=== PATIENT | female | born 1955 | race Caucasian/White ===

== ENCOUNTER → 2018-05-14 | Outpatient (CLI) | payer BC ==
[2018-05-14 17:32] LABS: HCT 44.1 % (34.0-46.0); HGB 14.6 gm/dL (11.4-16.0); MCH 31.2 pg (25.0-35.0); MCHC 33.1 g/dL (31.0-37.0); MCV 94.4 fL (80.0-100.0); Mean Platelet Volume 7.5; Platelet Count 199 k/uL (150-450); RBC 4.67 m/uL (3.80-5.40); RDW 13.3 % (11.5-15.5); WBC 5.3 k/uL (3.8-10.6)
[2018-05-15 00:58] LABS: Thyroid Peroxidase Antibodies 34.7 U/mL (0.0-60.0); Vitamin D 25 Hydroxy 19.7 ng/mL (30.0-100.0)
[2018-05-15 01:40] LABS: Albumin 4.3 g/dL (3.80-4.90); Albumin/Globulin Ratio 2.15 (1.60-3.17); Anion Gap 10.7 mmol/L (4.00-12.00); Calcium 9.7 mg/dL (8.7-10.3); Carbon Dioxide 26.3 mmol/L (21.6-31.8); Potassium 4.4 mmol/L (3.5-5.5); Total Bilirubin 0.3 mg/dL (0.2-1.2); Total Protein 6.3 g/dL (6.2-8.2)
[2018-05-15 01:58] LABS: T4, Free (Free Thyroxine) 0.8 ng/dL (0.80-1.80)
== END | disposition home or self-care (01) ==
LOC: LABWHC1 16:13
PROVIDERS: ATTEND Obstetrics & Gynecology
DX: E55.9 Vitamin D deficiency, unspecified (principal); R53.83 Other fatigue; R68.82 Decreased libido; Z78.0 Asymptomatic menopausal state
CPT/HCPCS: 36415; 80053; 82306; 82607; 82670; 83001; 84403; 84439; 84443; 84481; 85027; 86376

== ENCOUNTER → 2018-07-01 | Outpatient (CLI) | payer BC | END | disposition home or self-care (01) | LOC: LABWHC1 17:31 | PROVIDERS: ATTEND Obstetrics & Gynecology | DX: E03.9 Hypothyroidism, unspecified (principal); E55.9 Vitamin D deficiency, unspecified; N95.1 Menopausal and female climacteric states; E34.50 Androgen insensitivity syndrome, unspecified | CPT/HCPCS: 36415; 82670; 83001; 84403; 84481 ==

== ENCOUNTER → 2019-06-11 | Outpatient (CLI) | payer BC ==
[2019-06-11 17:26] LABS: C Reactive Protein 0.4 mg/dL (0.0-0.8)
[2019-06-11 17:28] LABS: Thyroid Peroxidase Antibodies <28.0 U/mL (0.0-60.0)
[2019-06-12 08:11] LABS: HLA B27 NEGATIVE
[2019-06-12 09:17] LABS: Angiotensin-1 Converting Enz. 36 U/L (8-52)
[2019-06-12 13:56] LABS: C-ANCA <1:20 Titer (<1:20)
== END | disposition home or self-care (01) ==
LOC: LABWHC1 08:13
PROVIDERS: ATTEND Neurological Surgery
DX: E03.9 Hypothyroidism, unspecified (principal); E06.3 Autoimmune thyroiditis; H20.9 Unspecified iridocyclitis
CPT/HCPCS: 36415; 82164; 84439; 84443; 85549; 85652; 86038; 86140; 86255; 86376; 86431; 86618; 86780; 86812

== ENCOUNTER → 2020-07-12 | Outpatient (CLI) | payer BC ==
--- NOTE | 2020-07-13 07:51 | US ---
EXAMINATION TYPE: US venous doppler duplex LE LT DATE OF EXAM: 07/12/2020 4:39 PM COMPARISON: NONE CLINICAL HISTORY: Left leg pain and swelling. SIDE PERFORMED: Left TECHNIQUE: The lower extremity deep venous system is examined utilizing real time linear array sonog jermaine with graded compression, doppler sonography and color-flow sonography. VESSELS IMAGED: Common Femoral Vein Deep Femoral Vein Greater Saphenous Vein * Femoral Vein Popliteal Vein Small Saphenous Vein * Proximal Calf Veins (* superficial vessels) Left Leg: Negative for DVT GSV in its entirety and PTV's also scanned per order. IMPRESSION: No evidence for DVT.
== END | disposition home or self-care (01) ==
LOC: RADUSWWP 15:57
PROVIDERS: ATTEND Orthopaedic Surgery
DX: M79.605 Pain in left leg (principal); R22.42 Localized swelling, mass and lump, left lower limb

== ENCOUNTER 2020-08-28 15:51 | Emergency (ER) | payer BC ==
[2020-08-28 15:58] VITALS: BP 129/68; PULSE 63; RESP 16; TEMP 97.6
[2020-08-28] MEDS ORDERED: LIDOCAINE 1% INJ 10MG/ML (20 ML MDV) SQ ONE (16:17)
[2020-08-28] MEDS ORDERED: ACETAMINOPHEN TAB 325 MG TAB PO STA (16:17)
--- NOTE | 2020-08-28 16:17 | ED ---
Wound/Laceration HPI - General Chief Complaint: Wound/Laceration Stated Complaint: L hand injury Time Seen by Provider: 08/28/20 16:00 Source: patient, RN notes reviewed, old records reviewed Mode of arrival: ambulatory Limitations: no limitations - History of Present Illness Initial Comments: 64-year-old white female, well-appearing and alert and oriented 4, presents to the emergency room after slamming her left ring finger in a house door at around noon today. Patient states that she went to [facility] and they diagnosed her with a displaced fracture of the distal phalanx and sent her to the emergency room for laceration repair. Patient denies any other injuries. States her tetanus is up-to-date and given within the last 10 years. Patient denies any movement limitations she says that it has been oozing blood since the injury occurred. Patient denies smoking history. His medical history breast cancer, hypothyroid, bilateral mastectomies and oophorectomy, peripheral neuropathy and fingers and toes from chemotherapy.. Patient states that the pain is 4 out of 10 but did take Motrin prior to arrival. -: hour(s) (4) Location: other Place: home Patient Tetanus UTD: Yes Context: accidental (Slammed in a house door) Associated Symptoms: none Treatments Prior to Arrival: other (X-ray at [facility]) - Related Data Home Medications Medication Instructions Recorded Confirmed Cholecalciferol [Vitamin D3 (25 25 mcg PO DAILY 08/28/20 08/28/20 Mcg = 1000 Iu)] Gabapentin [Neurontin] 300 mg PO DAILY 08/28/20 08/28/20 Gabapentin [Neurontin] 600 mg PO HS 08/28/20 08/28/20 [place]-3 Fatty Acids/Fish Oil [Fish 1 cap PO DAILY 08/28/20 08/28/20 Oil 1,000 mg Softgel] Thyroid,Pork [Personnel Generalist Manager Thyroid] 60 mg PO DAILY 08/28/20 08/28/20 buPROPion HCL [Wellbutrin XL] 300 mg PO DAILY@1200 08/28/20 08/28/20 Previous Rx's Medication Instructions Recorded Cephalexin [Keflex] 500 mg PO Q6HR #40 cap 08/28/20 Allergies Allergy/AdvReac Type Severity Reaction Status Date / Time codeine Allergy Unknown Uncoded 08/28/20 17:07 Review of Systems ROS Statement: Those systems with pertinent positive or pertinent negative responses have been documented in the HPI. ROS Other: All systems not noted in ROS Statement are negative. Past Medical History Past Medical History: Cancer, Thyroid Disorder Additional Past Medical History / Comment(s): chemo induced neuropathy, breast cancer History of Any Multi-Drug Resistant Organisms: None Reported Past Surgical History: Orthopedic Surgery, Tonsillectomy Additional Past Surgical History / Comment(s): double mastectomy., oophorectomy Past Psychological History: Depression Smoking Status: Never smoker Past Alcohol Use History: None Reported Past Drug Use History: None Reported General Exam Limitations: no limitations General appearance: alert, in no apparent distress Head exam: Present: atraumatic, normocephalic, normal inspection Eye exam: Present: normal appearance, PERRL, EOMI. Absent: scleral icterus, conjunctival injection, periorbital swelling Pupils: Present: normal accommodation ENT exam: Present: normal exam, normal oropharynx, mucous membranes moist Neck exam: Present: normal inspection, full ROM. Absent: tenderness, meningismus, lymphadenopathy Respiratory exam: Present: normal lung sounds bilaterally. Absent: respiratory distress, wheezes, rales, rhonchi, stridor, chest wall tenderness, accessory muscle use, decreased breath sounds Cardiovascular Exam: Present: regular rate, normal rhythm, normal heart sounds. Absent: systolic murmur, diastolic murmur, rubs, gallop, clicks GI/Abdominal exam: Present: soft, normal bowel sounds. Absent: distended, tenderness, guarding, rebound, rigid Extremities exam: Present: normal inspection, full ROM, normal capillary refill. Absent: tenderness, pedal edema, joint swelling, calf tenderness Left Hand Wrist exam: Present: tenderness, laceration (2 cm laceration to the palmar aspect of The distal phalanx of the ring finger ), subungual hematoma (Minor subungual hematoma the nail base of ring finger). Absent: amputation, nail avulsion Neuro motor exam: Present: wrist extension intact, fingers 2-5 abduction intact Vascular: Present: normal capillary refill, radial pulse. Absent: vascular compromise, Pallo, pulse deficit radial art, pulse deficit ulnar art, pulse deficit brachial art Back exam: Absent: tenderness, CVA tenderness (R), CVA tenderness (L) Neurological exam: Present: alert, oriented X3, CN II-XII intact Psychiatric exam: Present: normal affect, normal mood Skin exam: Present: warm, dry, intact, normal color. Absent: rash Course Vital Signs 08/28/20 15:53 Temperature 97.6 F Pulse Rate 63 Respiratory 16 Rate Blood Pressure 129/68 O2 Sat by Pulse 100 Oximetry Procedures - Laceration Laceration #1 Site: hand (Left ring finger distal phalanx) Description: linear Depth: simple, single layer Anesthetic Used: lidocaine 1% Amount (mls): 6 Pre-repair: irrigated extensively (200ml 0 water) Type of Sutures: nylon Size of Sutures: 5-0 Number of Sutures: 8 Technique: simple, interrupted Patient Tolerated Procedure: well Medical Decision Making - Medical Decision Making X-ray shows tuft fracture of the left distal phalanx ring finger. Wound was closed after 200ml irrigation with eight 5-0 nylon sutures. Digital block performed. Patient was given IM cefazolin and prescribed Keflex 500 mg 4 times a day for 7 days. [id number] Tylenol and Motrin for pain, ice and elevate. Capillary refill is less than 2 seconds. Patient will be referred to hand / orthopedics. Patient is is right handed. No neuro deficits. Case discussed with Dr rob. Disposition Clinical Impression: Laceration Disposition: HOME SELF-CARE Condition: Good Instructions (If sedation given, give patient instructions): Finger Fracture (ED), Finger Laceration (ED) Additional Instructions: Keep wound clean and dry, take medication as prescribed. Follow-up with ortho/hand next week. Return to the emergency room with increasing pain, signs and symptoms of infection including drainage or fevers. [id number] Tylenol and Motrin alternating for pain. Ice elevate at home. Prescriptions: Cephalexin [Keflex] 500 mg PO Q6HR #40 cap Is patient prescribed a controlled substance at d/c from ED?: No When asked, does pt state using other controlled substances?: No Referrals: Lianne Watson MD [Primary Care Provider] - 1-2 days Johnnie Garcia DO [Doctor of Osteopathic Medicine] - 1-2 days Time of Disposition: 17:21
[2020-08-28] MEDS ORDERED: ceFAZolin 1,000 MG VIAL (IM USE) IM STA (16:32)
[2020-08-28] MEDS ORDERED: ACET/COD 300 MG/30 MG STARTER PACK 6 TAB BTL PO STA (17:27)
== END 2020-08-28 18:05 | disposition home or self-care (01) ==
LOC: EC 15:51
DX: S61.215A Laceration without foreign body of left ring finger without damage to nail, initial encounter (principal); F32.9 Major depressive disorder, single episode, unspecified; E03.9 Hypothyroidism, unspecified; G62.9 Polyneuropathy, unspecified; Z79.890 Hormone replacement therapy; Z79.899 Other long term (current) drug therapy; Z85.3 Personal history of malignant neoplasm of breast; Z88.5 Allergy status to narcotic agent; W23.0XXA Caught, crushed, jammed, or pinched between moving objects, initial encounter; Y92.009 Unspecified place in unspecified non-institutional (private) residence as the place of occurrence of the external cause
CPT/HCPCS: 96372 ×2; 99282 ×2; 12001 ×2; J0690; J2001

== ENCOUNTER 2020-12-28 12:48 | Emergency (ER) | payer BC ==
[2020-12-28 13:16] VITALS: BP 99/48; PULSE 59; RESP 16; TEMP 97.9
--- NOTE | 2020-12-28 14:17 | ED ---
Extremity Problem HPI - General Chief complaint: Extremity Problem,Nontraumatic Stated complaint: Calf pain, post knee surgery Time Seen by Provider: 12/28/20 13:21 Source: patient, RN notes reviewed Mode of arrival: ambulatory Limitations: no limitations - History of Present Illness Initial comments: Patient is a 65-year-old female presenting to the emergency Department with complaints of left sided calf pain that started this morning. Patient had her left knee replaced at [facility] yesterday with Dr. Chinchilla. She states today she is noticed pain in her left calf, is very tight and sore, she also thought she had some skin changes and some mild swelling. She has no history of blood clots. She is not currently on blood thinners however she was prescribed Eliquis to start taking post surgery however she has not started this yet. She denies any chest pain or shortness of breath, no cough. No fevers or chills. Her pain has been well controlled with oral medications as well as a pain pump. Patient has no further complaints at this time. Her vitals are stable upon arrival. - Related Data Home Medications Medication Instructions Recorded Confirmed Cholecalciferol [Vitamin D3 (25 25 mcg PO DAILY 08/28/20 08/28/20 Mcg = 1000 Iu)] Gabapentin [Neurontin] 300 mg PO DAILY 08/28/20 08/28/20 Gabapentin [Neurontin] 600 mg PO HS 08/28/20 08/28/20 [place]-3 Fatty Acids/Fish Oil [Fish 1 cap PO DAILY 08/28/20 08/28/20 Oil 1,000 mg Softgel] Thyroid,Pork [Museum Specialist Thyroid] 60 mg PO DAILY 08/28/20 08/28/20 buPROPion HCL [Wellbutrin XL] 300 mg PO DAILY@1200 08/28/20 08/28/20 Previous Rx's Medication Instructions Recorded Cephalexin [Keflex] 500 mg PO Q6HR #40 cap 08/28/20 Allergies Allergy/AdvReac Type Severity Reaction Status Date / Time codeine Allergy Unknown Uncoded 08/28/20 17:07 Review of Systems ROS Statement: Those systems with pertinent positive or pertinent negative responses have been documented in the HPI. ROS Other: All systems not noted in ROS Statement are negative. Past Medical History Past Medical History: Cancer, Thyroid Disorder Additional Past Medical History / Comment(s): chemo induced neuropathy, breast cancer History of Any Multi-Drug Resistant Organisms: None Reported Past Surgical History: Orthopedic Surgery, Tonsillectomy Additional Past Surgical History / Comment(s): double mastectomy., oophorectomy Past Psychological History: Depression Smoking Status: Never smoker Past Alcohol Use History: None Reported Past Drug Use History: None Reported General Exam - General Exam Comments Initial Comments: GENERAL: Patient is well-developed and well-nourished. Patient is nontoxic and in no acute distress. HEAD: Atraumatic, normocephalic. EYES: Pupils equal round and reactive to light, extraocular movements intact, sclera anicteric, conjunctiva are normal. Eyelids were unremarkable. ENT: Moist mucous membranes. NECK: Normal range of motion, supple without lymphadenopathy or JVD. LUNGS: Unlabored respirations. Breath sounds clear to auscultation bilaterally and equal. No wheezes rales or rhonchi. HEART: Regular rate and rhythm without murmurs, rubs or gallops. ABDOMEN: Soft, nontender, normoactive bowel sounds. No guarding, no rebound. No masses appreciated. MUSCULOSKELETAL: Patient is 1 day postop left total knee replacement, skin that looks clean, dry and intact. Very mild swelling present in the lower leg, no redness she is neurovascular intact. She does have some tenderness in the left posterior calf. No clubbing or cyanosis. NEUROLOGICAL: Patient is alert and oriented x 3. Symmetrical smile. Normal speech. SKIN: Warm, Dry, normal turgor, no rashes or lesions noted. Limitations: no limitations Course Vital Signs 12/28/20 13:11 Temperature 97.9 F Pulse Rate 59 L Respiratory 16 Rate Blood Pressure 99/48 O2 Sat by Pulse 97 Oximetry Medical Decision Making - Medical Decision Making Patient is a 65-year-old female here with left calf pain as started this morning. She is 1 day postop left total knee replacement done at will. I Dr. Chinchilla. She was prescribed a blood thinner however she has not started it yet. Ultrasound today reveals no evidence for DVT. I discussed with patient this is most likely muscle skeletal pain secondary from the surgery. I recommended tension massaged, may apply some heat to the left calf. She is agreeable to this plan of care and she is stable for discharge. She'll follow-up with her surgeon. Disposition Clinical Impression: Pain of left calf Disposition: HOME SELF-CARE Condition: Stable Instructions (If sedation given, give patient instructions): Leg Pain (ED) Additional Instructions: Please return to the Emergency Department if symptoms worsen or any other concerns. Gentle massage to the calf may help. Follow-up with your surgeon. Is patient prescribed a controlled substance at d/c from ED?: No Referrals: Lianne Watson MD [Primary Care Provider] - 1-2 days Time of Disposition: 15:12
--- NOTE | 2020-12-28 14:33 | US ---
EXAMINATION TYPE: US venous doppler duplex LE LT DATE OF EXAM: 12/28/2020 2:20 PM COMPARISON: NONE CLINICAL HISTORY: pain in calf. Knee surgery yesterday. No redness or swelling. Started blood thinn ers today. SIDE PERFORMED: Left TECHNIQUE: The lower extremity deep venous system is examined utilizing real time linear array sonog jermaine with graded compression, doppler sonography and color-flow sonography. VESSELS IMAGED: Common Femoral Vein Deep Femoral Vein Greater Saphenous Vein * Femoral Vein Popliteal Vein Small Saphenous Vein * Proximal Calf Veins (* superficial vessels) Left Leg: Negative for DVT IMPRESSION: No evidence for DVT at this time.
== END 2020-12-28 15:25 | disposition home or self-care (01) ==
LOC: EC 12:48
DX: M79.662 Pain in left lower leg (principal); F32.9 Major depressive disorder, single episode, unspecified; Z79.890 Hormone replacement therapy; Z79.899 Other long term (current) drug therapy; Z88.5 Allergy status to narcotic agent
CPT/HCPCS: 99283

== ENCOUNTER → 2022-07-27 | Outpatient (CLI) | payer MEDICARE ==
--- NOTE | 2022-07-27 14:22 | US ---
EXAMINATION TYPE: US pelvis complete transvag DATE OF EXAM: 07/27/2022 COMPARISON: NONE CLINICAL INDICATION: Female, 66 years old with history of N95.0 POSTMENOPAUSAL BLEEDING; Postmenopaus al bleeding ovaries removed. TECHNIQUE: Transvaginal (TV) and Transabdominal (TA) . EXAM MEASUREMENTS: Uterus: 8 x 3.7 x 3.7 cm Endometrial Stripe: .5 cm Right Ovary: Surgically absent Left Ovary: Surgically absent 1. Uterus: Anteverted Nabothian cysts seen. Anechoic area CHAIM .8 x .3 cm. 2. Endometrium: wnl 3. Right Ovary: Surgically absent 4. Left Ovary: Surgically absent 5. Bilateral Adnexa: wnl 6. Posterior cul-de-sac: wnl A few tiny nabothian cysts in the cervix. Endometrial stripe measures upper limits of normal for post menopausal female. Trace fluid in the endometrial canal at the level of the cervix is suspected. IMPRESSION: No abnormal thickening of the endometrium.
[2022-07-28 02:11] LABS: HCT 44.2 % (37.2-46.3); MCH 30.6 pg (27.0-32.0); MCHC 31.7 g/dL (32.0-37.0); MCV 96.7 fL (80.0-97.0); Mean Platelet Volume 10.7 fL (9.5-12.2); NRBC Per 100 WBC 0 /100 WBCS (0.0-0.0); Platelet Count 218 X 10*3/uL (140-440); RBC 4.57 X 10*6/uL (4.10-5.20); RDW 13.2 % (11.5-14.5); WBC 5.11 X 10*3/uL (4.50-10.00)
== END | disposition home or self-care (01) ==
LOC: RADUSWWP 12:57
PROVIDERS: ATTEND Family Medicine
DX: N95.0 Postmenopausal bleeding (principal)
CPT/HCPCS: 76830; 76856; 84443; 85027

== ENCOUNTER → 2024-01-02 | Outpatient (CLI) | payer MEDICARE ==
[2024-01-02 16:37] LABS: Basophils # (A) 0.03 X 10*3/uL (0.00-0.10); Basophils % (A) 0.9 %; Eosinophils # (A) 0.08 X 10*3/uL (0.04-0.35); Eosinophils % (A) 2.3 %; HGB 14.9 g/dL (12.0-15.0); Lymphocytes # (A) 1.48 X 10*3/uL (0.90-5.00); Lymphocytes % (A) 42.2 %; MCH 31.3 pg (27.0-32.0); MCHC 32.4 g/dL (32.0-37.0); MCV 96.6 FL (80.0-97.0); Mean Platelet Volume 10.3 FL (9.5-12.2); Monocytes % (A) 11.4 %; NRBC Per 100 WBC 0 X 10*3/uL (0.00-0.01); Neutrophils # (A) 1.51 X 10*3/uL (1.80-7.70); Neutrophils % (A) 42.9 %; Platelet Count 198 X 10*3/uL (140-440); RBC 4.76 X 10*6/uL (4.10-5.20); RDW 12.4 % (11.5-14.5); WBC 3.51 X 10*3/uL (4.50-10.00)
[2024-01-02 16:39] LABS: INR 0.95 sec (0.93-1.11); Prothrombin Time 10.3 sec (9.9-11.9)
[2024-01-02 16:47] LABS: BUN/Creat Ratio 17.22 Ratio (12.00-20.00); Blood Urea Nitrogen 15.5 mg/dL (9.0-27.0); Calcium 9.3 mg/dL (8.7-10.3); Carbon Dioxide 25.2 mmol/L (21.6-31.8); Chloride 107 mmol/L (96-109); Glucose 92 mg/dL (70-110); Potassium 4.6 mmol/L (3.5-5.5); Sodium 143 mmol/L (135-145)
== END | disposition home or self-care (01) ==
LOC: LABWHC1 10:58
PROVIDERS: ATTEND Orthopaedic Surgery
DX: M16.11 Unilateral primary osteoarthritis, right hip (principal)
CPT/HCPCS: 36415; 80048; 85025; 85610; 93005

== ENCOUNTER → 2024-01-17 | Outpatient (CLI) | payer MEDICARE | END | disposition home or self-care (01) | LOC: LABWHC1 09:11 | PROVIDERS: ATTEND Orthopaedic Surgery | DX: Z01.812 Encounter for preprocedural laboratory examination (principal); Z22.322 Carrier or suspected carrier of Methicillin resistant Staphylococcus aureus; M16.11 Unilateral primary osteoarthritis, right hip | CPT/HCPCS: 86850; 86900; 86901; 87070 ==

== ENCOUNTER 2024-01-27 05:48 | Day surgery (SDC) | payer MEDICARE ==
[2024-01-23 10:54] VITALS: BMI 35.7
--- NOTE | 2024-01-26 22:30 | HP ---
HISTORY AND PHYSICAL SURGERY DATE: January 27, 2024. HISTORY OF PRESENT ILLNESS: Sky Saleh is a 68-year-old patient seen with symptomatic right hip osteoarthritis. We discussed options. She elected to proceed with direct anterior right total hip arthroplasty. Consent regarding the procedure was obtained. Preoperative medical clearance was provided by Dr. Lianne Watson. PAST MEDICAL HISTORY: Hypothyroidism and osteoarthritis. PAST SURGICAL HISTORY: Knee arthroscopy, breast reduction, mastectomy. MEDICATIONS: Daily medications are: 1. Gabapentin. 2. Meloxicam. 3. Synthroid. ALLERGIES: Codeine. SOCIAL HISTORY: She denies tobacco use. PHYSICAL EVALUATION OF THE RIGHT HIP: She has diffuse tenderness about the hip girdle. Limited range of motion with severe pain. Positive hip impingement sign. Straight-leg raise negative. Distal neurovascular exam is intact. RADIOGRAPHS: Right hip revealed severe osteoarthritic changes. IMPRESSION: 1. Right hip osteoarthritis. 2. Hypothyroidism. PLAN: Direct anterior right total hip arthroplasty. MMODL / IJN: [id number] /
[~2024-01-27 05:48] MED LIST: TRANEXAMIC 1,000 MG/100ML-NACL 1,000 MG in SALINE 1 100ML.BAG IVPB PRN
[2024-01-27] MEDS ORDERED: fentaNYL (PF) 50 MCG/ML 2 ML AMP IVP PRN (06:13)
[2024-01-27] MEDS ORDERED: LIDOCAINE 1% (10MG/ML) FOR IV START INTRADERMA PRN (06:13)
[2024-01-27] MEDS: ACETAMINOPHEN TAB 500 MG TAB PO PRN (06:31)
[2024-01-27] MEDS: MELOXICAM 7.5 MG TAB PO PRN (06:32)
[2024-01-27] MEDS: MIDAZOLAM 2 MG/2 ML VIAL IV PRN (06:59)
[2024-01-27] MEDS: ONDANSETRON 4 MG/2 ML VIAL IVP ONE (07:07)
[2024-01-27] MEDS: DEXAMETHASONE SOD PHOSPHATE 4 MG/ML 1 ML VIAL IV ONE (07:07)
[2024-01-27] MEDS: IV FLUID CONTINUATION 1,000 ML IV ONE (07:08)
[2024-01-27] MEDS: LACTATED RINGERS 1,000 ML IV SCH ×2 (07:08→12:59)
[2024-01-27] MEDS ORDERED: DEXAMETHASONE SOD PHOSPHATE 4 MG/ML 1 ML VIAL ONE (07:28)
[2024-01-27] MEDS ORDERED: LIDOCAINE 1% INJ 10MG/ML (20 ML MDV) ONE (07:28)
[2024-01-27] MEDS ORDERED: PROPOFOL 10 MG/ML 20 ML VIAL IV ONE (07:28)
[2024-01-27] MEDS ORDERED: diphenhydrAMINE 50 MG/ML 1 ML VIAL ONE (07:28)
[2024-01-27] MEDS ORDERED: TRANEXAMIC 1,000 MG/100ML-NACL PREMIX BAG ONE (07:28)
[2024-01-27] MEDS ORDERED: ePHEDrine 50 MG/ML 1 ML VIAL ONE (07:28)
[2024-01-27] MEDS ORDERED: ROPIVACAINE 5 MG/ML 30 ML VIAL ONE (07:28)
[2024-01-27] MEDS ORDERED: MIDAZOLAM 2 MG/2 ML VIAL ONE (07:28)
[2024-01-27] MEDS: ceFAZolin 1,000 MG in SODIUM CHLORIDE 0.9% 1,000 ML IRRIGATION ONE (07:57)
[2024-01-27] MEDS: LACTATED RINGERS 1,000 ML IV ONE ×2 (09:11→11:42)
[2024-01-27] MEDS ORDERED: NALOXONE 0.4 MG/ML 1 ML VIAL IV PRN (09:19)
[2024-01-27] MEDS ORDERED: HYDROmorphone 0.5 MG/0.5 ML SYRINGE IVP PRN ×2 (09:19)
[2024-01-27] MEDS ORDERED: HYDROcodone/APAP 5-325MG 1 EACH TAB PO PRN (09:19)
--- NOTE | 2024-01-27 09:19 | P.OP ---
Date of Procedure: 01/27/24 Preoperative Diagnosis: Right hip osteoarthritis Postoperative Diagnosis: Right hip osteoarthritis Procedure(s) Performed: Direct anterior right total hip arthroplasty Implants: 1. DePuy [place]ail 135 degree standard collared size 13 press-fit femoral stem 2. DePuy Lengby 56 mm press-fit acetabular shell augmented with two 6.5 mm cancellous bone screws 3. DePuy Lengby neutral polyethylene acetabular liner 36 mm ID 56 mm OD 4. Biolox delta ceramic femoral head +1.5 36 mm Anesthesia: regional (Erector spinae block), spinal Surgeon: Phani Jean Fishing Rod Mechanic #1: Neville Jim Estimated Blood Loss (ml): 45 Pathology: none sent Condition: stable Disposition: PACU Indications for Procedure: 68-year-old patient seen with symptomatic right hip osteoarthritis. After having treatment options discussed, she elected to proceed with direct anterior right total hip arthroplasty. Operative Findings: See description of procedure Description of Procedure: The patient was taken to the operative suite. Patient underwent a spinal anesthetic by the department of anesthesia. Patient was then transferred to the [place] table. Patient was given preoperative IV antibiotics and TXA. Both lower extremities were placed in standard leg spars. The hip was then prepped and draped in the normal sterile orthopedic fashion. A standard anterior incision was made beginning 3 cm lateral and 1 cm distal to the ASIS extending 10 cm. Dissection was then carried down through the subcutaneous soft tissues down to the fascia overlying the tensor fascia ajit. An incision was now made through the fascia. Careful dissection was taken down exposing the tensor fascia ajit muscle. A Cobra retractor was now placed along the medial femoral neck and a second one along the lateral femoral neck. The venous circumflex vessels were now identified, cauterized and clipped. We identified the anterior hip capsule. An incision was made through the hip capsule along the lateral border. I performed a partial anterior capsulectomy. Retractors were now placed around the femoral neck itself. A femoral neck cut was now made with a sagittal saw. It was completed with an osteotome at the lateral neck area. The femoral head was now removed without difficulty. The extremity was now rotated to 60 of external rotation. It was locked in position. Residual labrum was now debrided out. Serial reaming was performed of the acetabulum while Xander SHEN assisted holding an anterior retractor for exposure. Once we reached the appropriate size and a trial was position and fit nicely. The appropriate size was now chosen opened and made available. It was introduced into the acetabulum without difficulty. The C-arm/fluoroscopy was now brought into the operative field. We made sure we had a true AP pelvic view. We now under direct C- arm/fluoroscopy introduced into the acetabular component with appropriate version and inclination. I held the cup in appropriate position well Xander SHEN used a mallet to seat the acetabular component. I noted the component now to be well seated and stable. I decided to augment the stability with two 6.5 mm cancellous bone screws with good purchase/fixation. Acetabular cup introduce her was removed. The C-arm was pulled back. An appropriate liner was introduced and clicked into position. It was felt to be stable. At this point retractors were removed. The extremity was now placed into 120 external rotation with no traction. The leg was now dropped to the ground and adducted. Appropriate retractors were now positioned along the proximal femur. We also placed our femoral look into position. Additional capsular releasing was performed to gain access to the proximal femur. We now used a box osteotome. A canal finder was now utilized. Serial broaching was now performed with the assistance of Xander SHEN tapping the broaches down with a mallet while held the broach in appropriate rotation and position. I noted the canal was very tight distally and therefore I performed interlaminar medullary reaming to accommodate the femoral component. I again began serial broaching. This was done until we reached the appropriate size with good overall rotational stability. Appropriate calcar planing was performed. A trial head/neck was placed into position. The hip was now reduced. The C-arm/fluoroscopy was brought back into the operative field. I obtained an AP pelvis was demonstrated adequate leg length alignment. The trial components appeared adequately sized and position. The C-arm/fluoroscopy was pulled back. Retractors were repositioned and the hip was dislocated. The leg was again taken down to the ground and adducted. Appropriate retractors were repositioned as well as the femoral hook. All trial components were removed. The femoral implant was opened along with the femoral head. The femoral implant was introduced on the appropriate handle into our pre-broached area. I held the component position well aXnder SHEN used a mallet to seat the femoral component. The femoral component was now noted to be well seated and stable.. The femoral head was introduced with good positioning and fixation noted. Retractors were now removed. The hip was now reduced. There appeared be good positioning of the hip confirmed on intraoperative fluoroscopy. Spot films were obtained to document this. A second gram of TXA was given. The deep and superficial soft tissues were infiltrated with local analgesic. Bipolar cautery had been utilized intermittently through the procedure for hemostasis. The wound was irrigated copiously with pulse lavage mechanical irrigation. The fascia was repaired with Vicryl suture. The subcutaneous soft tissues were repaired in layers with Vicryl suture. The skin was approximated with pernio/Dermabond. Sterile dressings were applied. Patient was then awakened, transferred to a bed and taken to recovery in stable condition. Xander SHEN assisted with the complex procedure.
--- NOTE | 2024-01-27 09:23 | FL ---
EXAMINATION TYPE: FL guidance operating room, XR Hip Limited RT DATE OF EXAM: 01/27/2024 9:13 AM COMPARISON: Pre Operative Images if available both CT/MRI or plain film CLINICAL INDICATION: Female, 68 years old with history of ANT TOTAL RIGHT HIP; TECHNIQUE: FL guidance operating room, XR Hip Limited RT, multiple fluoroscopic images provided for p rocedure. Total fluoroscopy time: 15 seconds Total submitted images to PACS: 2 DAP: [id number] mGym2 Gycm2 uGym2 cGycm2 or equivalent. FINDINGS: Fluoroscopic images during internal fixation/arthroplasty demonstrate fixation hardware in appropriat e position. Hardware appears intact. No immediate complication identified. IMPRESSION: 1. No evidence for intraoperative complication. 2. Please see the operative/procedural note for further details. [facility], , 01/27/2024 9:20 AM
[2024-01-27] MEDS: HYDROmorphone 0.5 MG/0.5 ML SYRINGE IVP PRN ×2 (09:50→12:22)
--- NOTE | 2024-01-27 12:51 | P.ANPRN ---
Procedure Note - Anesthesia - Nerve Block Performed Right Rectus Abdominis Single Time Out Performed: Yes Date of Procedure: 01/27/24 Procedure Start Time: 06:58 Procedure Stop Time: 07:03 Location of Patient: PreOp Indication: Acute Post-Operative Pain, Requested by Surgeon Sedation Type: Sedate with meaningful contact maintained Preparation: Sterile Prep Position: Supine Needle Types: Pajunk Needle Gauge: 21 Ultrasound used to visualize needle placement: Yes Ultrasound used to observe medication spread: Yes Blood Aspirated: No Pain Paresthesia on Injection Noted: No Resistance on Injection: Normal Image Stored and Saved: Yes Events: Uneventful and Well Tolerated (Ropivacaine 0.5% 20 cc plus dexamethasone 4 mg)
[2024-01-27] MEDS: HYDROcodone/APAP 7.5-325MG 1 EACH TAB PO PRN (14:02)
[2024-01-27] MEDS ORDERED: ACETAMINOPHEN TAB 500 MG TAB PO PRN (14:39)
[2024-01-27] MEDS: GABAPENTIN 300 MG CAP PO SCH ×2 (16:41→20:15)
[2024-01-27] MEDS: ONDANSETRON 4 MG/2 ML VIAL IVP PRN (17:11)
--- NOTE | 2024-01-27 17:52 | P.CONS ---
History of Present Illness - Reason for Consult Consult date: 01/27/24 - History of Present Illness Sky aMyers, is a 68-year-old female who was admitted to [facility] by Dr. Jean, and underwent right total hip arthroplasty on 01/27/2024, patient was admitted to the surgical floor postsurgery, medical consultation was requested for management while hospitalized. Past medical history is significant for history of breast cancer with history of double mastectomy, history of chemo induced neuropathy, history of osteoarthritis with previous history of left total knee arthroplasty, history of depression, and history of hypothyroidism. On review of systems patient is alert and oriented x 3 in no apparent distress, she is complaining of nausea otherwise she denies any complaints there is no fever or chills no headache or dizziness no chest pain no shortness of breath no cough no vomiting no abdominal pain no diarrhea no blood in the stools no burning with urination no frequency or urgency and no hematuria. Past Medical History Past Medical History: Cancer, Osteoarthritis (OA), Thyroid Disorder Additional Past Medical History / Comment(s): chemo induced neuropathy, breast cancer History of Any Multi-Drug Resistant Organisms: None Reported Past Surgical History: Breast Surgery, Hysterectomy, Joint Replacement, Orthopedic Surgery, Tonsillectomy Additional Past Surgical History / Comment(s): double mastectomy (lymph nodes removed on right), oophorectomy, LT TKA, LT KNEE SURGERY, COLONOSCOPY, BILAT CATARACTS REMOVED WITH LENS IMPLANTS, right total hip. Past Anesthesia/Blood Transfusion Reactions: No Reported Reaction Past Psychological History: Depression Smoking Status: Never smoker Past Alcohol Use History: Occasional Past Drug Use History: None Reported, Marijuana - Past Family History Mother Family Medical History: Cancer Sister(s) Family Medical History: Cancer Medications and Allergies Home Medications Medication Instructions Recorded Confirmed Type Cholecalciferol [Vitamin D3 (25 25 mcg PO DAILY 08/28/20 01/27/24 History Mcg = 1000 Iu)] Gabapentin [Neurontin] 300 mg PO TID 08/28/20 01/27/24 History Thyroid,Pork [Supervisor Drawing Thyroid] 60 mg PO DAILY 08/28/20 01/27/24 History buPROPion HCL [Wellbutrin XL] 300 mg PO DAILY@1200 08/28/20 01/27/24 History Acetaminophen [Tylenol Arthritis] 1,300 mg PO TID PRN 01/23/24 01/27/24 History Doxycycline [Vibramycin] 100 mg PO DAILY 01/23/24 01/27/24 History Meloxicam [Mobic] 15 mg PO DAILY 01/23/24 01/27/24 History Multivit with Calcium,Iron,Min 1 each PO DAILY 01/23/24 01/27/24 History [Women's Multivitamin] Allergies Allergy/AdvReac Type Severity Reaction Status Date / Time codeine AdvReac Nausea & Uncoded 01/27/24 06:19 Vomiting Physical Exam Vitals: Vital Signs Temp Pulse Pulse Resp BP Pulse Ox 01/27/24 14:00 97.3 F L 56 L 17 94/60 97 01/27/24 12:32 97.8 F 58 L 16 98/64 99 01/27/24 11:45 101/50 01/27/24 11:30 59 L 16 92/53 100 01/27/24 11:15 53 L 14 91/55 100 01/27/24 11:00 63 14 86/54 100 01/27/24 10:30 56 L 14 86/54 99 01/27/24 10:15 52 L 14 90/54 98 01/27/24 10:04 53 L 14 94/46 97 01/27/24 09:49 60 14 109/60 95 01/27/24 09:34 97 F L 63 14 97/53 96 01/27/24 07:09 61 16 108/57 94 L 01/27/24 06:25 97.0 F L 63 18 122/58 94 L Intake and Output 01/26/24 01/27/24 01/27/24 22:59 06:59 14:59 Intake Total 2050 Output Total 45 Balance 2005 Intake: IV 2050 Output: Estimated Blood Loss 45 Other: Weight 109.4 kg 109.4 kg In general patient is alert and oriented x 3 in no distress HEENT head normocephalic and atraumatic Neck is supple no JVD no goiter no lymphadenopathy no carotid bruit Chest examination is clear to auscultation no crackles no wheezing Cardiac exam reveals regular heart sounds S1 and S2 no gallops with 3/6 systolic murmur in the left sternal border Abdomen is soft nontender no organomegaly with normal bowel sounds Extremity exam reveals no edema no cyanosis or clubbing Neurological examination reveals no gross focal deficits Assessment and Plan Plan: Osteoarthritis of the right hip, status post right total hip arthroplasty on 01/27/2024, pain management and DVT prophylaxis as per orthopedic protocol Underlying history of peripheral neuropathy Underlying history of depression Underlying history of osteoarthritis Previous history of breast cancer status post bilateral mastectomy Underlying history of hypothyroidism Cardiac murmur which patient states that it is chronic At this time patient was seen and examined Home medications reviewed and reordered Will follow during this hospitalization for any medical management needs.
[2024-01-27] MEDS: SENNOSIDES-DOCUSATE SODIUM 1 EACH TAB PO SCH (20:15)
[2024-01-27] MEDS: ASPIRIN 81 MG PO SCH (20:17)
[2024-01-28] MEDS: ONDANSETRON 4 MG/2 ML VIAL IVP PRN (06:52)
[2024-01-28 08:56] VITALS: PULSE 70; RESP 18; TEMP 98.3
[2024-01-28] MEDS ORDERED: NON FORMULARY DRUG (Multivit With Calcium,Iron,Min [Women's Multivitamin] 1 EACH Tablet) PO SCH (09:00)
[2024-01-28 09:02] LABS: ALT 26 U/L (8-44); AST 45 U/L (13-35); Albumin 3.5 g/dL (3.8-4.9); Albumin/Globulin Ratio 2.19 Ratio (1.60-3.17); Alkaline Phosphatase 58 U/L (41-126); BUN/Creat Ratio 20.56 Ratio (12.00-20.00); Blood Urea Nitrogen 18.5 mg/dL (9.0-27.0); Calcium 8.7 mg/dL (8.7-10.3); Carbon Dioxide 21.8 mmol/L (21.6-31.8); Chloride 107 mmol/L (96-109); Globulin 1.6 g/dL (1.6-3.3); Glucose 149 mg/dL (70-110); Potassium 4.5 mmol/L (3.5-5.5); Sodium 138 mmol/L (135-145); Total Bilirubin <0.2 mg/dL (0.3-1.2); Total Protein 5.1 g/dL (6.2-8.2)
[2024-01-28 09:09] VITALS: BP 95/59
[2024-01-28] MEDS: buPROPion XL 300 MG TAB.ER.24H PO SCH (09:10)
[2024-01-28] MEDS: GABAPENTIN 300 MG CAP PO SCH (09:11)
[2024-01-28] MEDS: MELOXICAM 7.5 MG TAB PO SCH (09:11)
[2024-01-28] MEDS: MULTIVITAMINS, THERA 1 EACH TAB PO SCH (09:12)
[2024-01-28] MEDS: THYROID, PORK 30 MG TAB PO SCH (09:12)
[2024-01-28] MEDS: CHOLECALCIFEROL 25 MCG (1000 IU) TABLET PO SCH (09:12)
[2024-01-28] MEDS: FAMOTIDINE 20 MG TAB PO SCH (09:12)
--- NOTE | 2024-01-28 09:30 | P.PN ---
Subjective Progress Note Date: 01/28/24 Sky Mayers, is a 68-year-old female who was admitted to [facility] by Dr. Jean, and underwent right total hip arthroplasty on 01/27/2024, patient was admitted to the surgical floor postsurgery, medical consultation was requested for management while hospitalized. Past medical history is significant for history of breast cancer with history of double mastectomy, history of chemo induced neuropathy, history of osteoarthritis with previous history of left total knee arthroplasty, history of depression, and history of hypothyroidism. On review of systems patient is alert and oriented x 3 in no apparent distress, she is complaining of nausea otherwise she denies any complaints there is no fever or chills no headache or dizziness no chest pain no shortness of breath no cough no vomiting no abdominal pain no diarrhea no blood in the stools no burning with urination no frequency or urgency and no hematuria. On 01/28/2024 patient is alert and oriented x 3 currently sitting up in chair. Patient is hoping to be DC'd today per orthopedic services. Patient denies chest pain or shortness of breath. Patient denies nausea vomiting or diarrhea. Patient denies any urinary burning or frequency. Lab work currently pending current vital signs temp 98.3, heart rate 70, respiratory rate 18, blood pressure 95/59 with a pulse ox of 93% on room air Objective - Vital Signs Vital signs: Vital Signs Temp 98.3 F 01/28/24 08:11 Pulse 70 01/28/24 08:11 Resp 18 01/28/24 08:11 BP 95/59 01/28/24 09:08 Pulse Ox 93 L 01/28/24 08:35 FiO2 Intake & Output 01/27/24 01/28/24 01/28/24 18:59 06:59 18:59 Intake Total 2050 Output Total 45 Balance 2005 Weight 109.4 kg Intake: IV 2050 Output: Estimated Blood Loss 45 Other: Voiding Method Toilet # Voids 1 1 - Exam In general patient is alert and oriented x 3 in no distress HEENT head normocephalic and atraumatic Neck is supple no JVD no goiter no lymphadenopathy no carotid bruit Chest examination is clear to auscultation no crackles no wheezing Cardiac exam reveals regular heart sounds S1 and S2 no gallops with 3/6 systolic murmur in the left sternal border Abdomen is soft nontender no organomegaly with normal bowel sounds Extremity exam reveals no edema no cyanosis or clubbing Neurological examination reveals no gross focal deficits - Labs CBC & Chem 7: 01/28/24 03:33 Labs: Abnormal Lab Results - Last 24 Hours (Table) 01/28/24 Range/Units 03:33 BUN/Creatinine Ratio 20.56 H (12.00-20.00) Ratio Glucose 149 H (70-110) mg/dL Total Bilirubin <0.2 L (0.3-1.2) mg/dL AST 45 H (13-35) U/L Total Protein 5.1 L (6.2-8.2) g/dL Albumin 3.5 L (3.8-4.9) g/dL Assessment and Plan Plan: Osteoarthritis of the right hip, status post right total hip arthroplasty on 01/27/2024, pain management and DVT prophylaxis as per orthopedic protocol Underlying history of peripheral neuropathy Underlying history of depression Underlying history of osteoarthritis Previous history of breast cancer status post bilateral mastectomy Underlying history of hypothyroidism Cardiac murmur which patient states that it is chronic At this time patient was seen and examined Home medications reviewed and reordered Will follow during this hospitalization for any medical management needs.
[2024-01-28 10:37] LABS: Basophils # (A) 0.01 X 10*3/uL (0.00-0.10); Basophils % (A) 0.1 %; Eosinophils # (A) 0 X 10*3/uL (0.04-0.35); Eosinophils % (A) 0 %; HCT 32.6 % (37.2-46.3); HGB 10.7 g/dL (12.0-15.0); Lymphocytes # (A) 1.32 X 10*3/uL (0.90-5.00); Lymphocytes % (A) 15.2 %; MCH 31.8 pg (27.0-32.0); MCHC 32.8 g/dL (32.0-37.0); Monocytes # (A) 0.55 X 10*3/uL (0.20-1.00); Monocytes % (A) 6.3 %; NRBC Per 100 WBC 0 X 10*3/uL (0.00-0.01); Neutrophils # (A) 6.78 X 10*3/uL (1.80-7.70); Neutrophils % (A) 78.1 %; Platelet Count 175 X 10*3/uL (140-440); RBC 3.36 X 10*6/uL (4.10-5.20); RDW 12.8 % (11.5-14.5); WBC 8.69 X 10*3/uL (4.50-10.00)
--- NOTE | 2024-01-28 12:33 | P.PN ---
Subjective Progress Note Date: 01/28/24 Principal diagnosis: Status post direct anterior right total hip arthroplasty patient evaluated at bedside, she is resting comfortably in her hospital bed. She did well with physical therapy. She has some minor discomfort in the anterior aspect of the right thigh. She denies any headaches, lightheadedness, chest pain or shortness of breath Objective - Vital Signs Vital signs: Vital Signs Temp 98.3 F 01/28/24 08:11 Pulse 70 01/28/24 08:11 Resp 18 01/28/24 08:11 BP 95/59 01/28/24 09:08 Pulse Ox 93 L 01/28/24 08:35 FiO2 Intake & Output 01/27/24 01/28/24 01/28/24 18:59 06:59 18:59 Intake Total 2050 Output Total 45 Balance 2005 Weight 109.4 kg Intake: IV 2050 Output: Estimated Blood Loss 45 Other: Voiding Method Toilet Toilet # Voids 1 1 - Exam Right lower extremity: Incision is clean, dry, and intact. The foam dressing is in good condition. There is minimal soft tissue swelling and ecchymosis surrounding the medial and lateral aspects of the incision. Calf is soft, no tenderness with palpation. Plantar flexion, dorsiflexion, EHL, FHL are intact. Sensory exam to light touch throughout the extremity is intact, dorsal pedis pulses 2+. - Labs CBC & Chem 7: 01/28/24 03:33 01/28/24 03:33 Labs: Abnormal Lab Results - Last 24 Hours (Table) 01/28/24 01/28/24 Range/Units 03:33 03:33 RBC 3.36 L (4.10-5.20) X 10*6/uL Hgb 10.7 L (12.0-15.0) g/dL Hct 32.6 L (37.2-46.3) % Eosinophils # 0 L (0.04-0.35) X 10*3/uL BUN/Creatinine Ratio 20.56 H (12.00-20.00) Ratio Glucose 149 H (70-110) mg/dL Total Bilirubin <0.2 L (0.3-1.2) mg/dL AST 45 H (13-35) U/L Total Protein 5.1 L (6.2-8.2) g/dL Albumin 3.5 L (3.8-4.9) g/dL Assessment and Plan Assessment: Postoperative day #1 status post direct anterior right total hip arthroplasty Plan: pain control, plan for discharge home on Wiley 7.5 mg / 325 mg. We will utilize multiple stool softeners at discharge also DVT prophylaxis, Eliquis 2.5 mg twice a day for 12 days wound care instructions discussed, this to include when to remove bandage, showering instructions along with icing Home PT/nursing after discharge medical recommendations appreciated discharge planning: Patient stable for discharge home today Time with Patient: Less than 30
--- NOTE | 2024-01-29 08:58 | P.DS ---
Providers Date of admission: 01/27/2024 Expected date of discharge: 01/28/24 Attending physician: Phani Jean Consults: 01/27/24 09:19 Consult Physician Routine Consulting Provider: Josie Gordon Consult Reason/Comments: Medical management Do you want consulting provider notified?: Yes Primary care physician: Lianne Watson Hospital Course: Date of admission: 01/27/2024 Date of discharge: 01/28/2024 Admission diagnosis: Status post direct anterior right total hip arthroplasty Discharge diagnosis: Same Attending physician: Dr. Jean Surgical procedures: Direct anterior right total hip arthroplasty Brief history: Patient is a 68-year-old female with a history of progressive primary right hip osteoarthritis. At this point patient has failed conservative treatment measures and has opted to proceed with a elective direct anterior right total hip arthroplasty. Hospital course: Details of patient's surgery can be found in operative report. Patient tolerated the procedure well and was subsequently transported to orthopedic floor. Patient's orthopeidc and medical care was provided daily. Patient had daily laboratory tests performed for evaluation of overall blood counts. Patient had daily physical therapy to include strengthening range of motion as well as education with walker ambulation. Patient was treated with SCDs and compression stockings for their postoperative DVT prophylaxis during their inpatient stay. Patient was noted to have a relatively uneventful postoperative course. Patient reported satisfactory pain control with oral pain medications by postoperative day 0. Patient showed satisfactory progress with physical therapy. Patient moved steadily through the program and had no difficulty meeting the goals by postoperative day 1. Given patient's otherwise satisfactory course and having met physical therapy goals, plan is to discharge patient home on postoperative day 1. Discharge condition/disposition: Patient will be discharged home in stable condition. Discharge medications: Instructions are given on resumption of patient's normal daily medications per primary care recommendation, in addition patient will be prescribed Xenia 7.5 mg / 325 mg, Eliquis 2.5 mg, senna S, MiraLAX 17 g. Discharge instructions: 1. Wound care and infection precautions, keep incision dry and covered while showering, no lotions, creams, moisturizers. No soaking, tubs, pools, hottubs. Do not scrub over the incision. 2. Weight-bear as tolerated with walker / cane until follow-up. 3. Ice and elevate when necessary. Do not exceed 20 minutes per hour with ice pack. 4. Utilize compression sleeve until seen at first follow up appointment. 5. Visiting nursing care. 6. Home physical therapy. 7. Pain meds and anticoagulants per prescription. 8. Pain medication has potential to cause constipation. Increase oral fluid and fiber intake. Contact primary care provider if you have not had a bowel movement within 48 hours after discharge 9. No anti-inflammatory medication until discussed at first post operative visit, this including Motrin, Aleve, Mobic, Diclofenac. 10. Follow up in office at 2 weeks postop with Xander Jim PA-C/Jose Maya 11. Follow up with your primary care doctor 7-10 days after discharge. 12. Contact [facility] with any questions, . Procedures: direct anterior right total hip arthroplasty Patient Condition at Discharge: Good Plan - Discharge Summary Discharge Rx Participant: No New Discharge Prescriptions: New polyethylene glycoL 3350 [Miralax] 17 gm PO DAILY PRN #21 packet PRN Reason: Constipation HYDROcodone/APAP 7.5-325MG [Xenia 7.5] 1 each PO Q6HR PRN #28 tab PRN Reason: Pain Sennosides/Docusate Sodium [Senna-S 8.6-50 mg Tablet] 2 each PO DAILY PRN #30 tablet PRN Reason: Constipation Apixaban [Eliquis] 2.5 mg PO BID 12 Days #24 tab Continue Thyroid,Pork [Seismic Prospecting Observer Thyroid] 60 mg PO DAILY Cholecalciferol [Vitamin D3 (25 Mcg = 1000 Iu)] 25 mcg PO DAILY Gabapentin [Neurontin] 300 mg PO TID Multivit with Calcium,Iron,Min [Women's Multivitamin] 1 each PO DAILY buPROPion HCL [Wellbutrin XL] 300 mg PO DAILY@1200 Acetaminophen [Tylenol Arthritis] 1,300 mg PO TID PRN PRN Reason: Pain Discontinued Meloxicam [Mobic] 15 mg PO DAILY No Action Doxycycline [Vibramycin] 100 mg PO DAILY Discharge Medication List Cholecalciferol [Vitamin D3 (25 Mcg = 1000 Iu)] 25 mcg PO DAILY 08/28/20 [History] Gabapentin [Neurontin] 300 mg PO TID 08/28/20 [History] Thyroid,Pork [Seismic Prospecting Observer Thyroid] 60 mg PO DAILY 08/28/20 [History] buPROPion HCL [Wellbutrin XL] 300 mg PO DAILY@1200 06/20/21 [History] Acetaminophen [Tylenol Arthritis] 1,300 mg PO TID PRN 01/23/24 [History] Doxycycline [Vibramycin] 100 mg PO DAILY 01/23/24 [History] Multivit with Calcium,Iron,Min [Women's Multivitamin] 1 each PO DAILY 01/23/24 [History] Apixaban [Eliquis] 2.5 mg PO BID 12 Days #24 tab 01/28/24 [Rx] HYDROcodone/APAP 7.5-325MG [Xenia 7.5] 1 each PO Q6HR PRN #28 tab 01/28/24 [Rx] Sennosides/Docusate Sodium [Senna-S 8.6-50 mg Tablet] 2 each PO DAILY PRN #30 tablet 01/28/24 [Rx] polyethylene glycoL 3350 [Miralax] 17 gm PO DAILY PRN #21 packet 01/28/24 [Rx] Follow up Appointment(s)/Referral(s): [facility], [NON-STAFF] - 1-2 Days ([facility] will call you to schedule your in home nursing and physical therapy visits. ) Neville Jim PAC [PHYSICIAN HOTEL ROOM ATTENDANT] - 2 Weeks Patient Instructions/Handouts: Anterior Hip Replacement (GEN) Activity/Diet/Wound Care/Special Instructions: Orthopedic Discharge Instructions: 1. Wound care and infection precautions, keep incision dry and covered while showering, no lotions, creams, moisturizers. No soaking, pools, hot tubs. Do not scrub over incision. 2. Weight-bear as tolerated with walker / cane until follow-up. 3. Ice and elevate when necessary. Do not exceed 20 minutes per hour with ice pack. 4. Utilize compression sleeve until seen at first follow up appointment. 5. Pain meds and anticoagulants per prescription. 6. Pain medication has potential to cause constipation. Increase oral fluid and fiber intake. Contact primary care provider if you have not had a bowel movement within 48 hours after discharge. 7. No anti-inflammatory medication until discussed at first post operative visit, this including Motrin, Aleve, Mobic, Diclofenac. 8. Follow up in office at 2 weeks postop with Xander Jim PA-C / Jose Chan PA-C 9. Follow up with your primary care doctor 7-10 days after discharge. 10. Contact [facility] with any questions, . Keep incision clean, dry, intact. While showering, cover silver foam dressing with Saran wrap. Keep silver foam dressing on until 02/03/2024. Once dressing is removed, it is okay to shower directly over incision Discharge Disposition: HOME WITH HOME HEALTH SERVICES
== END 2024-01-28 14:10 | disposition home health service (06) ==
LOC: OR 05:48 → 4SSUR 09:29 → OR 01-28 14:10
PROVIDERS: ATTEND Orthopaedic Surgery
DX: M16.11 Unilateral primary osteoarthritis, right hip (principal); E03.9 Hypothyroidism, unspecified; Z01.818 Encounter for other preprocedural examination; Z88.5 Allergy status to narcotic agent; Z79.899 Other long term (current) drug therapy; Z79.890 Hormone replacement therapy
CPT/HCPCS: 94760; 97161; 64999; 80053; 85025; 73501; 27130; C1776; J2250; J1100; J0690 ×3; J2405 ×2; J1171 ×2

== ENCOUNTER 2024-01-30 16:27 | Emergency (ER) | payer MEDICARE ==
--- NOTE | 2024-01-30 16:55 | ED ---
Headache HPI - General Source: RN notes reviewed Mode of arrival: wheelchair Limitations: no limitations <Yulia Sher - Last Filed: 01/30/24 16:53> <Travis Loomis - Last Filed: 01/30/24 21:20> - General Chief Complaint: Headache Stated Complaint: POST OP COMPLICATIONS Time Seen by Provider: 01/30/24 16:53 - History of Present Illness Initial Comments: Quick [id number] female presenting with headache x 3 days with associated nausea and vomiting. States she underwent a right hip replacement on Saturday and has been having a severe headache since. States lying supine improved symptoms. She was placed on Eliquis since the surgery. Denies chest pain, shortness of breath. (Yulia Sher) 68-year-old female with headache after epidural for hip surgery which was performed 2 days prior. Headache is worse with standing. No fever. Patient is on Eliquis for DVT prophylaxis after surgery. (Travis Loomis) - Related Data Home Medications Medication Instructions Recorded Confirmed Cholecalciferol [Vitamin D3 (25 25 mcg PO DAILY 08/28/20 01/27/24 Mcg = 1000 Iu)] Gabapentin [Neurontin] 300 mg PO TID 08/28/20 01/27/24 Thyroid,Pork [Air Drill Operator Thyroid] 60 mg PO DAILY 08/28/20 01/27/24 buPROPion HCL [Wellbutrin XL] 300 mg PO DAILY@1200 08/28/20 01/27/24 Acetaminophen [Tylenol Arthritis] 1,300 mg PO TID PRN 01/23/24 01/27/24 Doxycycline [Vibramycin] 100 mg PO DAILY 01/23/24 01/27/24 Multivit with Calcium,Iron,Min 1 each PO DAILY 01/23/24 01/27/24 [Women's Multivitamin] Previous Rx's Medication Instructions Recorded Apixaban [Eliquis] 2.5 mg PO BID 12 Days #24 tab 01/28/24 HYDROcodone/APAP 7.5-325MG [[place] 1 each PO Q6HR PRN #28 tab 01/28/24 7.5] Sennosides/Docusate Sodium 2 each PO DAILY PRN #30 tablet 01/28/24 [Senna-S 8.6-50 mg Tablet] polyethylene glycoL 3350 [Miralax] 17 gm PO DAILY PRN #21 packet 01/28/24 Ondansetron Odt [Zofran Odt] 4 mg PO Q8HR PRN #10 tab 01/30/24 Allergies Allergy/AdvReac Type Severity Reaction Status Date / Time aspirin AdvReac Nausea & Verified 01/27/24 20:31 Vomiting codeine AdvReac Nausea & Uncoded 01/27/24 06:19 Vomiting Review of Systems ROS Other: All systems not noted in ROS Statement are negative. <ChristosYulia - Last Filed: 01/30/24 16:53> ROS Other: All systems not noted in ROS Statement are negative. <Travis Loomis - Last Filed: 01/30/24 21:20> ROS Statement: Those systems with pertinent positive or pertinent negative responses have been documented in the HPI. Past Medical History Past Medical History: Cancer, Osteoarthritis (OA), Thyroid Disorder Additional Past Medical History / Comment(s): chemo induced neuropathy, breast cancer History of Any Multi-Drug Resistant Organisms: None Reported Past Surgical History: Breast Surgery, Hysterectomy, Joint Replacement, Orthopedic Surgery, Tonsillectomy Additional Past Surgical History / Comment(s): double mastectomy (lymph nodes removed on right), oophorectomy, LT TKA, LT KNEE SURGERY, COLONOSCOPY, BILAT CATARACTS REMOVED WITH LENS IMPLANTS, right total hip. Past Anesthesia/Blood Transfusion Reactions: No Reported Reaction Past Psychological History: Depression Smoking Status: Never smoker Past Alcohol Use History: Occasional Past Drug Use History: None Reported, Marijuana - Past Family History Mother Family Medical History: Cancer Sister(s) Family Medical History: Cancer <ChristosYulia - Last Filed: 01/30/24 16:53> General Exam Limitations: no limitations <Rosangela Sherna - Last Filed: 01/30/24 16:53> General appearance: alert, in no apparent distress Head exam: Present: atraumatic, normocephalic Eye exam: Present: normal appearance, PERRL ENT exam: Present: mucous membranes dry Neck exam: Present: normal inspection. Absent: tenderness, meningismus Respiratory exam: Present: normal lung sounds bilaterally. Absent: respiratory distress, wheezes Cardiovascular Exam: Present: regular rate, normal rhythm GI/Abdominal exam: Present: soft. Absent: distended, tenderness Extremities exam: Present: normal inspection, normal capillary refill Back exam: Present: other (The epidural puncture site clean, no erythema, no bleeding) Neurological exam: Present: alert, oriented X3, CN II-XII intact Psychiatric exam: Present: normal affect, normal mood Skin exam: Present: warm, dry, intact <Travis Loomis - Last Filed: 01/30/24 21:20> - General Exam Comments Initial Comments: Visual Physical Exam Vital signs reviewed General: Well-appearing, nontoxic, no acute distress. Head: Normocephalic, atraumatic Eyes: PERRLA, EOMI ENT: Airway patent Chest: Nonlabored breathing Skin: No visual rash, normal skin tone Neuro: Alert and oriented 3 Musculoskeletal: No gross abnormalities (Yulia Sher) Course Vital Signs 01/30/24 01/30/24 16:30 19:24 Temperature 98.5 F 97.8 F Pulse Rate 72 76 Respiratory 20 16 Rate Blood Pressure 118/57 134/68 O2 Sat by Pulse 100 99 Oximetry Medical Decision Making <Yulia Sher - Last Filed: 01/30/24 16:53> - Lab Data Result diagrams: 01/30/24 19:05 01/30/24 19:05 <Travis Loomis - Last Filed: 01/30/24 21:20> - Medical Decision Making I completed the quick note portion of this chart signed Yulia Sher PA-C (Yulia Sher) Was pt. sent in by a medical professional or institution ([facility], ORDER ADMINISTRATOR, urgent care, hospital, or penitentiary...) When possible be specific @ -No Did you speak to anyone other than the patient for history (EMS, parent, family, police, friend...)? What history was obtained from this source @ -No Did you review nursing and triage notes (agree or disagree)? Why? @ -I reviewed and agree with nursing and triage notes Were old charts reviewed (outside hosp., previous admission, EMS record, old EKG, old radiological studies, urgent care reports/EKG's, penitentiary records)? Report findings @ -No old charts were reviewed Differential Headache: Migraine, tension, cluster, carbon monoxide, central venous thrombosis, pension karma temporal arteritis, acute closure glaucoma, intercranial hemorrhage, mastoiditis, sinusitis, head injury, this is not meant to be an all-inclusive list. EKG interpreted by me (3pts min.). @ -As above X-rays interpreted by me (1pt min.). @ -None done CT interpreted by me (1pt min.). @ -[CT brain negative for intracranial hemorrhage or mass effect U/S interpreted by me (1pt. min.). @ -None done What testing was considered but not performed or refused? (CT, X-rays, U/S, labs)? Why? @ -None What meds were considered but not given or refused? Why? @ -None Did you discuss the management of the patient with other professionals (professionals i.e. DrShila, PA, ORDER ADMINISTRATOR, lab, RT, psych nurse, social work professor, stretcher leveler operator helper, teacher, catapult and arresting gear officer, case consultant)? Give summary @ -No Was smoking cessation discussed for >3mins.? @ -No Was critical care preformed (if so, how long)? @ -No Were there social determinants of health that impacted care today? How? (Homeles sness, low income, unemployed, alcoholism, drug addiction, transportation, low edu. Level, literacy, decrease access to med. care, [facility], rehab)? @ -No Was there de-escalation of care discussed even if they declined (Discuss DNR or withdrawal of care, Hospice)? DNR status @ -No What co-morbidities impacted this encounter? (DM, HTN, Smoking, COPD, CAD, Cancer, CVA, ARF, Chemo, Hep., AIDS, mental health diagnosis, sleep apnea, morbid obesity)? @ -Recent hip surgery with epidural Was patient admitted / discharged? Hospital course, mention meds given and route, prescriptions, significant lab abnormalities, going to OR and other pertinent info. @68-year-old with positional headache after epidural. Patient given pain medication, IV caffeine, IV fluids nausea medications on reevaluation her he adache is completely resolved. We did discuss the possibility of lumbar puncture prior to initial treatment. At this time given the resolution of her headache advised to maintain hydration and take medication as prescribed at home. Patient agreeable with discharge. Undiagnosed new problem with uncertain prognosis? @ -No Drug Therapy requiring intensive monitoring for toxicity (Heparin, Nitro, Insulin, Cardizem)? @ -No Were any procedures done? @ -No Diagnosis/symptom? @ -Spinal headache Acute, or Chronic, or Acute on Chronic? @ -[Acute Uncomplicated (without systemic symptoms) or Complicated (systemic symptoms)? @ -Default Side effects of treatment? @ -No Exacerbation, Progression, or Severe Exacerbation? @ -No Poses a threat to life or bodily function? How? (Chest pain, [place], [place], pneumonia, PE, COPD, DKA, ARF, appy, cholecystitis, CVA, Diverticulitis, Homicidal, Suicidal, threat to staff... and all critical care pts) @ -No (Travis Loomis) - Lab Data Lab Results 01/30/24 01/30/24 01/30/24 Range/Units 19:05 19:05 19:05 WBC 7.4 (3.8-10.6) k/uL RBC 3.74 L (3.80-5.40) m/uL Hgb 11.9 (11.4-16.0) gm/dL Hct 35.4 (34.0-46.0) % MCV 94.7 (80.0-100.0) fL MCH 31.8 (25.0-35.0) pg MCHC 33.6 (31.0-37.0) g/dL RDW 12.9 (11.5-15.5) % Plt Count 196 (150-450) k/uL MPV 8.4 Neutrophils % 78 % Lymphocytes % 16 % Monocytes % 4 % Eosinophils % 1 % Basophils % 0 % Neutrophils # 5.8 (1.3-7.7) k/uL Lymphocytes # 1.2 (1.0-4.8) k/uL Monocytes # 0.3 (0-1.0) k/uL Eosinophils # 0.1 (0-0.7) k/uL Basophils # 0.0 (0-0.2) k/uL PT 9.4 L (10.0-12.5) sec INR 0.8 (<1.2) APTT 24.9 (22.0-30.0) sec Sodium 136 L (137-145) mmol/L Potassium 4.3 (3.5-5.1) mmol/L Chloride 106 (98-107) mmol/L Carbon Dioxide 27 (22-30) mmol/L Anion Gap 3 mmol/L BUN 14 (7-17) mg/dL Creatinine 0.71 (0.52-1.04) mg/dL Est GFR (CKD-EPI)AfAm >90 (>60 ml/min/1.73 sqM) Est GFR (CKD-EPI)NonAf 89 (>60 ml/min/1.73 sqM) Glucose 123 H (74-99) mg/dL Plasma Lactic Acid Sung (0.7-2.0) mmol/L Calcium 8.7 (8.4-10.2) mg/dL Total Bilirubin 0.6 (0.2-1.3) mg/dL AST 72 H (14-36) U/L ALT 28 (4-34) U/L Alkaline Phosphatase 69 (38-126) U/L Total Protein 6.4 (6.3-8.2) g/dL Albumin 3.7 (3.5-5.0) g/dL 01/30/24 Range/Units 19:17 WBC (3.8-10.6) k/uL RBC (3.80-5.40) m/uL Hgb (11.4-16.0) gm/dL Hct (34.0-46.0) % MCV (80.0-100.0) fL MCH (25.0-35.0) pg MCHC (31.0-37.0) g/dL RDW (11.5-15.5) % Plt Count (150-450) k/uL MPV Neutrophils % % Lymphocytes % % Monocytes % % Eosinophils % % Basophils % % Neutrophils # (1.3-7.7) k/uL Lymphocytes # (1.0-4.8) k/uL Monocytes # (0-1.0) k/uL Eosinophils # (0-0.7) k/uL Basophils # (0-0.2) k/uL PT (10.0-12.5) sec INR (<1.2) APTT (22.0-30.0) sec Sodium (137-145) mmol/L Potassium (3.5-5.1) mmol/L Chloride (98-107) mmol/L Carbon Dioxide (22-30) mmol/L Anion Gap mmol/L BUN (7-17) mg/dL Creatinine (0.52-1.04) mg/dL Est GFR (CKD-EPI)AfAm (>60 ml/min/1.73 sqM) Est GFR (CKD-EPI)NonAf (>60 ml/min/1.73 sqM) Glucose (74-99) mg/dL Plasma Lactic Acid Sung 0.9 (0.7-2.0) mmol/L Calcium (8.4-10.2) mg/dL Total Bilirubin (0.2-1.3) mg/dL AST (14-36) U/L ALT (4-34) U/L Alkaline Phosphatase (38-126) U/L Total Protein (6.3-8.2) g/dL Albumin (3.5-5.0) g/dL Disposition <Yulia Sher - Last Filed: 01/30/24 16:53> Is patient prescribed a controlled substance at d/c from ED?: No Time of Disposition: 21:01 <Travis Loomis - Last Filed: 01/30/24 21:20> Clinical Impression: Headache following lumbar puncture Disposition: HOME SELF-CARE Condition: Good Instructions (If sedation given, give patient instructions): Acute Headache (ED) Prescriptions: Ondansetron Odt [Zofran Odt] 4 mg PO Q8HR PRN #10 tab PRN Reason: Vomiting Referrals: Lianne Watson MD [Primary Care Provider] - 1-2 days
--- NOTE | 2024-01-30 17:44 | CT ---
EXAMINATION TYPE: CT brain wo con DATE OF EXAM: 01/30/2024 5:19 PM COMPARISON: None. CLINICAL INDICATION: Female, 68 years old with history of headache severe on eliquis recent hip repl acement, headache post-op hip sx TECHNIQUE: Brain: Axial CT images of the brain were obtained with coronal and sagittal reformats created and rev iewed. Contrast used: None. Oral contrast used: None. CT DLP: 1107.4 mGycm, Automated exposure control for dose reduction was used. FINDINGS: Brain: Extra-axial spaces: No abnormal extra-axial fluid collections. Ventricular system: Within normal limits Cerebral parenchyma: No acute intraparenchymal hemorrhage or mass effect. The love-white junction is well differentiated. Cerebellum: Unremarkable. Mass effect: No evidence of midline shift. Intracranial vasculature: Atherosclerotic calcifications of the intracranial vessels. Soft tissues: Normal. Calvarium/osseous structures: No depressed skull fracture. Paranasal sinuses and mastoid air cells: Mild scattered paranasal sinus disease. Visualized orbits: Orbital contents are intact. IMPRESSION: No acute intracranial process. [facility], , 01/30/2024 5:42 PM
[2024-01-30 19:16] LABS: Basophils % (A) 0 %; Eosinophils # (A) 0.1 k/uL (0-0.7); Eosinophils % (A) 1 %; HCT 35.4 % (34.0-46.0); HGB 11.9 gm/dL (11.4-16.0); Lymphocytes # (A) 1.2 k/uL (1.0-4.8); Lymphocytes % (A) 16 %; MCH 31.8 pg (25.0-35.0); MCHC 33.6 g/dL (31.0-37.0); MCV 94.7 fL (80.0-100.0); Mean Platelet Volume 8.4; Monocytes # (A) 0.3 k/uL (0-1.0); Monocytes % (A) 4 %; Neutrophils # (A) 5.8 k/uL (1.3-7.7); Neutrophils % (A) 78 %; Platelet Count 196 k/uL (150-450); RBC 3.74 m/uL (3.80-5.40); RDW 12.9 % (11.5-15.5); WBC 7.4 k/uL (3.8-10.6)
[2024-01-30] MEDS: ONDANSETRON 4 MG/2 ML VIAL IVP STA (19:25)
[2024-01-30 19:26] LABS: INR 0.8 (<1.2); Partial Thromboplastin Time 24.9 sec (22.0-30.0); Prothrombin Time 9.4 sec (10.0-12.5)
[2024-01-30] MEDS: HYDROmorphone 0.5 MG/0.5 ML SYRINGE IVP STA (19:27)
[2024-01-30 19:28] VITALS: PULSE 76; RESP 16; TEMP 97.8
[2024-01-30 19:31] LABS: ALT 28 U/L (4-34); AST 72 U/L (14-36); African American GFR (CKD) >90 (>60 ml/min/1.73 sqM); Albumin 3.7 g/dL (3.5-5.0); Alkaline Phosphatase 69 U/L (38-126); Anion Gap 3 mmol/L; Blood Urea Nitrogen 14 mg/dL (7-17); Calcium 8.7 mg/dL (8.4-10.2); Carbon Dioxide 27 mmol/L (22-30); Chloride 106 mmol/L (98-107); Glucose 123 mg/dL (74-99); Non-African American GFR(CKD) 89 (>60 ml/min/1.73 sqM); Potassium 4.3 mmol/L (3.5-5.1); Sodium 136 mmol/L (137-145); Total Bilirubin 0.6 mg/dL (0.2-1.3); Total Protein 6.4 g/dL (6.3-8.2)
[2024-01-30] MEDS: CAFFEINE-SODIUM BENZOATE 500 MG in SODIUM CHLORIDE 0.9% 1,000 ML IVPB ONE (19:45)
[2024-01-30] MEDS: ONDANSETRON 4 MG ODT STARTER PACK 2 TAB BTL PO STA (21:14)
[2024-01-30 21:24] VITALS: BP 129/78
== END 2024-01-30 21:24 | disposition home or self-care (01) ==
LOC: EC 16:27
DX: G97.1 Other reaction to spinal and lumbar puncture (principal); Z96.641 Presence of right artificial hip joint; Z88.6 Allergy status to analgesic agent; Z88.5 Allergy status to narcotic agent
CPT/HCPCS: 36415; 80053; 83605; 85025; 85610; 85730; 70450; 99284; 96365; 96375 ×2; J2405; S0119; J1171